=== PATIENT | male | born 2005 | race African-American/Black ===

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

== ENCOUNTER → 2025-07-12 | Outpatient (REF) | payer OTHER ==
[2025-07-12 17:13] LABS: AMORPHOUS SEDIMENT SMALL (NEGATIVE); APPEARANCE, URINE HAZY (CLEAR); BACTERIA, URINE AUTO NEGATIVE (NEGATIVE); BILIRUBIN, URINE AUTO NEGATIVE (NEGATIVE); BLOOD, URINE BLOOD NEGATIVE (NEGATIVE); GLUCOSE, URINE (UA) AUTO NEGATIVE (NEGATIVE); KETONE, URINE AUTO NEGATIVE (NEGATIVE); LEUKOCYTE ESTERASE, URINE AUTO NEGATIVE (NEGATIVE); MUCUS, URINE SMALL (NEGATIVE); NITRITE, URINE AUTO NEGATIVE (NEGATIVE); PROTEIN, URINE AUTO NEGATIVE (NEGATIVE); RBC, URINE AUTO 1 /HPF (0-3); SPECIFIC GRAVITY URINE AUTO 1.023 (1.002-1.035); SQUAMOUS EPITHELIAL CELL UR AU 0 /HPF (0-6); UROBILINOGEN, URINE AUTO 0.2 mg/dL (0.0-2.0); WBC, URINE AUTO 2 /HPF (0-3)
[2025-07-12 19:00] LABS: GC DNA AMPLIFICATION NEGATIVE (NEGATIVE)
== END ==
LOC: M LAB REF 16:51
PROVIDERS: ATTEND Pediatrics
DX: Z72.51 High risk heterosexual behavior (principal); R30.0 Dysuria

== ENCOUNTER 2025-07-31 16:38 | Emergency (ER) | payer OTHER ==
[~2025-07-31] VITALS: Ht 188 cm; Wt 82.0 kg
[2025-07-31 18:50] VITALS: BP 123/66; TEMP 98.6; O2SAT 98
== END 2025-07-31 19:01 | disposition home or self-care (01) ==
LOC: M ED 16:38 → EDBD 16:38 → M ED 19:01
DX: S93.402A Sprain of unspecified ligament of left ankle, initial encounter (principal); S82.55XA Nondisplaced fracture of medial malleolus of left tibia, initial encounter for closed fracture; X58.XXXA Exposure to other specified factors, initial encounter; Y92.838 Other recreation area as the place of occurrence of the external cause; Y93.67 Activity, basketball; Y99.9 Unspecified external cause status; F17.200 Nicotine dependence, unspecified, uncomplicated; F17.290 Nicotine dependence, other tobacco product, uncomplicated; F12.10 Cannabis abuse, uncomplicated